=== PATIENT | male | born 1940 | race Caucasian/White ===

== ENCOUNTER → 2017-01-03 | Outpatient (CLI) | payer OTHER ==
--- NOTE | 2017-01-04 10:48 | DI ---
Indication: ITS.REASON: DIAGNOSTIC TESTING Procedure: PELVIS W/2 VIEW RT HIP: Encounter: Initial Comparison: None Technique: Three views of the pelvis and right hip were obtained Findings: To arise osteopenia. The visualized osseous structures appear intact with no acute fracture identified. Severe degenerative arthrosis of the right hip with near complete loss of superior joint space and subchondral cystic and sclerotic changes. Degenerative spondylosis of the visualized lower lumbar spine. No focal radiographically apparent soft tissue swelling. No radiopaque foreign body. Calcified pelvic phleboliths. Impression: Severe degenerative arthrosis of the right hip. .
== END ==
LOC: IMA 16:49
DX: Z02.9 Encounter for administrative examinations, unspecified (principal)